=== PATIENT | male | born 1980 | race Caucasian/White ===

== ENCOUNTER 2021-03-11 18:46 | Emergency (ER) | payer SELFPAY ==
[~2021-03-11] VITALS: Ht 180.3 cm; Wt 83.3 kg
[2021-03-11 18:48] VITALS: BP 149/88
--- NOTE | 2021-03-11 20:51 | NUR ---
PT CALLED FOR ROOM. NA X 1
--- NOTE | 2021-03-11 21:08 | NUR ---
PT AMBULATED TO ROOM
[2021-03-11] MEDS ORDERED: CLINDAMYCIN 300 MG CAPSULE PO ONE (21:30)
[2021-03-11] MEDS ORDERED: CEFAZOLIN 1,000 MG IM ONE (21:30)
[2021-03-11] MEDS ORDERED: CEFAZOLIN 1,000 MG ONE (21:44)
[2021-03-11] MEDS ORDERED: CLINDAMYCIN 300 MG CAPSULE ONE (21:44)
== END 2021-03-11 22:09 | disposition home or self-care (01) ==
LOC: ED 22:07
DX: L03.116 Cellulitis of left lower limb (principal)
CPT/HCPCS: 93971; 96372; 99284; J0690

== ENCOUNTER 2021-04-05 23:24 | Emergency (ER) | payer SELFPAY ==
[~2021-04-05] VITALS: Ht 180.3 cm; Wt 80.0 kg
[2021-04-05] MEDS ORDERED: NALOXONE 0.4 MG/ML, 1ML ONE (23:52)
[2021-04-06] MEDS ORDERED: SODIUM CHLORIDE 0.9% 1,000ML IVBOLUS ONE
[2021-04-06] MEDS ORDERED: SODIUM CHLORIDE FLUSH 10ML SYR IVF ONE
[2021-04-06] MEDS ORDERED: NALOXONE 0.4 MG/ML, 1ML IVPush ONE
--- NOTE | 2021-04-06 00:16 | NUR ---
PT REPORTS HE WAS INJECTING METH AND POSSIBLY HEROIN INTO HIS ARM AND WHEN HE PUSHES DOWN WHERE THE INJECTION SITE INFILATRATED HE GETS MORE DROWSY. PT GIVEN NARCAN WITH NO CHANGE. PT APPEARS DROWSY. PT IS A&O X4. 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 VS STABLE. GIRLFRIEND AT BEDSIDE. WILL CONTINUE TO MONITOR.
[2021-04-06 00:26] LABS: BASOPHILS % (AUTO) 0 % (0-1); EOSINOPHILS % (AUTO) 3 % (1-7); LYMPHOCYTES % (AUTO) 9 % (22-44); MEAN CORPUSCULAR HEMOGLOBIN 30.7 pg (27.5-34.5); MEAN CORPUSCULAR HGB CONC 33.9 g/dL (33.2-36.2); MEAN PLATELET VOLUME 7.3 fL (7.4-10.4); MONOCYTES % (AUTO) 8 % (2-9); NEUTROPHILS % (AUTO) 80 % (42-75); PLATELET COUNT 212 x10^3/uL (130-400); RED BLOOD COUNT 4.71 x10^6/uL (4.38-5.82); RED CELL DISTRIBUTION WIDTH 13.8 % (9.4-14.8)
[2021-04-06 00:39] LABS: ALANINE AMINOTRANSFERASE 31 U/L (12-78); ALBUMIN 3.7 g/dL (3.4-5.0); CALCIUM 8.3 mg/dL (8.5-10.1); CREATININE 1.09 mg/dL (0.7-1.3)
[2021-04-06 00:40] LABS: ALKALINE PHOSPHATASE 69 U/L (45-117); BILIRUBIN,TOTAL 0.3 mg/dL (0.2-1.0); TOTAL PROTEIN 6.7 g/dL (6.4-8.2)
[2021-04-06 00:46] LABS: ANION GAP 6 mmol/L (5-15); CHLORIDE 111 mmol/L (98-107)
--- NOTE | 2021-04-06 01:05 | NUR ---
PT RESTING IN ROOM. VS STABLE. CALL LIGHT IN PLACE. WILL CONTINUE TO MONITOR.
--- NOTE | 2021-04-06 01:20 | NUR ---
pt resting in room. vs stable. girlfriend at bedside. call light in place. will continue to monitor.
--- NOTE | 2021-04-06 01:33 | NUR ---
REPORT FROM FRESNO TRANSFER OF CARE
--- NOTE | 2021-04-06 01:33 | NUR ---
REPORT GIVEN TO GEOVANNA OLMSTEAD
--- NOTE | 2021-04-06 01:53 | NUR ---
BREAK RN ; PT MOVED TO ROOM 40 ROOM 1 NEEDED, PT IN NAD AT THIS TIME,
--- NOTE | 2021-04-06 02:04 | NUR ---
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
--- NOTE | 2021-04-06 02:28 | NUR ---
REPORT RECIEVED FROM BREAK RN, PT ASLEEP IN BED, VSS, GIRLFRIEND AT BEDSIDE
[2021-04-06] MEDS ORDERED: NALOXONE 1 MG/ML, 2ML ONE ×2 (02:51→03:00)
[2021-04-06] MEDS ORDERED: NALOXONE 1 MG/ML, 2ML IVPush ONE (03:00)
[2021-04-06 04:13] VITALS: BP 126/83
--- NOTE | 2021-04-06 04:14 | NUR ---
PT A/OX4, GIRLFRIEND AT BEDSIDE, PT ABLE TO AMBULATE UP AND DOWN THE [place], PT WAS STEADY ON HIS FEET AND DID NOT HAVE ANY COMPLAINTS WHILE WALKING, PT STATED HE FELT GOOD ENOUGH TO GO LC
== END 2021-04-06 04:16 | disposition home or self-care (01) ==
LOC: ED 23:45
DX: F15.129 Other stimulant abuse with intoxication, unspecified (principal); R41.82 Altered mental status, unspecified; R94.31 Abnormal electrocardiogram [ECG] [EKG]
CPT/HCPCS: 36415; 80053; 80320; 85025; 93005; 96361; 96374; 96376; 99285; J2310; J7030; G0480